=== PATIENT | female | born 1940 | race Caucasian/White ===

== ENCOUNTER 2018-10-27 11:45 | Emergency (ER) | payer MEDICARE, SELFPAY ==
[2018-10-27 11:45] VITALS: BP 174/96; PULSE 80; RESP 18; TEMP 36.8; O2SAT 96; BMI 32.3
--- NOTE | 2018-10-27 12:50 | RAD_ITS ---
STUDY: X-RAY - UNILATERAL RIBS ( RIGHT ) WITH CHEST REASON FOR EXAM: Female, 78 years old. ] Pain following a recent fall. TECHNIQUE - RIBS: 4 view(s) of the ribs. TECHNIQUE - CHEST: Single PA view of the chest. COMPARISON: None. FINDINGS - RIBS: Normal visualized ribs without a demonstrated fracture. FINDINGS - CHEST: Scattered calcified granulomas. Hyperinflation. Mild degree of increased linear markings at the left lung base suggestive of early atelectasis and/or scarring. There is no demonstrated pleural abnormality. Normal size heart. Normal mediastinum and jelani. Normal visualized pulmonary arteries. There is atherosclerotic calcification of the aortic arch with tortuosity. Normal visualized thoracic spine. Normal visualized ribs, clavicles, and shoulders. There is no demonstrated abnormality of the visualized soft tissue structures of the upper abdomen. RAD/Ribs Uni Min 3V w/PA Chest IMPRESSION: RIBS: Normal x-ray examination of the ribs. CHEST: Mild linear atelectasis and/or scarring at left lung base. Electronically Signed: Colin Yang, at 13:32 EDT , Service support ,
[2018-10-27] MEDS: oxyCODONE 5 MG Tablet 10 MG PO (13:01)
[2018-10-27 13:02] VITALS: O2SAT 96
--- NOTE | 2018-10-27 14:46 | ED.VISSUMM ---
- ER Visit Summary Date of Service: 10/27/18 Chief Complaint: Fall History of Present Illness: The patient is a 78 F with right-sided chest pain after a fall 3 days ago. Patient was not having issues prior to the fall. This was a mechanical fall, she slipped. She has continued right sided rib pain, worse with moving and breathing. She tried heating pad and [id number] remedies, but nothing seems to help. Physical Examination: Afebrile and vital signs are unremarkable except for a blood pressure of 174/96. Patient appears uncomfortable but not toxic or in distress. Head and neck are atraumatic. Heart is regular rate and rhythm. Lungs are clear bilaterally. Right chest wall is tender to palpation over the lateral side and the anterior surface. There is no crepitus or other abnormal findings. Skin is unremarkable per patient. Abdomen is soft and nontender. CVAs nontender. Neurovascular intact distally. Test Results: X-rays of her ribs and chest showed left basilar atelectasis versus scarring but otherwise were unremarkable. No evidence of fracture. Emergency Department Course and Treatment: Patient treated with oxycodone. Treated with incentive spirometer. X-rays as above. I have clinical suspicion for fracture without other complication at this point. Prescription report shows that the patient was prescribed a 56-day supply of tramadol less than 1 month ago. The patient says that she threw this medication away because it was not working. I advised her that she needs to contact her primary doctor for a controlled substance prescription. We can treat her with nonnarcotics at home. Patient will return for any new or worsening issues. Please note there was nothing to suggest cardiac, vascular, respiratory, or abdominal pathology. Treatment Plan: As above Disposition: Discharged Impression: 1. Right chest wall pain This note was generated with fishfishme dictation software. It may contain incorrect words, spelling, and punctuation that were not noted in review of the chart prior to signing ED Disposition - Plan for ED Patient: Referrals: Lor Blake MD [Primary Care Provider] -
--- NOTE | 2018-10-27 14:49 | ED.DEP ---
ED Disposition - Plan for ED Patient: Instructions: Chest Wall Strain Referrals: Lor Blake MD [Primary Care Provider] -
--- NOTE | 2018-10-27 15:23 | ED.RN ---
PT GIVEN WRITTEN AND VERBAL DISCHARGE INSTRUCTIONS. PT VERBALIZES UNDERSTANDING. EDUCATED NOT TO DRIVE FOR SIX HOURS AFTER HAVING MEDICATION. WHEELED TO ER ENTRANCE. PT AMBULATES FROM ENTRANCE.
== END 2018-10-27 15:23 | disposition home or self-care (01) ==
LOC: ED 12:22
PROVIDERS: Emergency Provider Emergency Medicine; Family Provider Internal Medicine; PCP Internal Medicine
DX: R07.89 Other chest pain (principal)
CPT/HCPCS: 71101; 99283

== ENCOUNTER 2018-11-03 15:37 | Emergency (ER) | payer MEDICARE, SELFPAY ==
[2018-11-03 15:38] VITALS: BP 113/74; PULSE 75; RESP 16; TEMP 36.4; O2SAT 96; BMI 30.2
== END 2018-11-03 17:25 | disposition left against medical advice (07) ==
PROVIDERS: Emergency Provider Emergency Medicine; Family Provider Internal Medicine; PCP Internal Medicine
DX: M54.9 Dorsalgia, unspecified (principal)

== ENCOUNTER 2022-08-04 08:22 | Emergency (ER) | payer MEDICARE, MEDICAID, SELFPAY ==
[2022-08-04 08:23] VITALS: BP 135/74; PULSE 67; RESP 17; TEMP 36.2; O2SAT 97; BMI 31.3
[2022-08-04 08:25] VITALS: BP 135/74; PULSE 69; RESP 16; TEMP 36.2; O2SAT 95
[2022-08-04 08:27] VITALS: BMI 31.3
--- NOTE | 2022-08-04 08:28 | CT_ITS ---
STUDY: CT BRAIN WITHOUT CONTRAST REASON FOR EXAM: Female, 82 years old. Confusion. Dementia. RADIATION DOSAGE (If Supplied By Facility): CTDIvol = ( 44.99 ) mGy, DLP = ( 829.85 ) mGycm TECHNIQUE: Transaxial CT imaging of the brain was performed without administration of intravenous contrast material. Individualized dose optimization techniques were used for this CT. COMPARISON: No relevant priors. FINDINGS: Normal soft tissue structures. There is hyperostosis frontalis internus. There is moderate cerebral atrophy with widening of the extra-axial spaces and ventricular dilatation. There are areas of decreased attenuation within the white matter tracts of the supratentorial brain, consistent with microvascular disease changes. Normal basal ganglia and thalami. Normal brainstem. Normal cerebellum. There is no intracranial hemorrhage. There are no findings of an acute ischemic infarction. Atherosclerotic plaque formation of the cavernous portions of the internal carotid arteries bilaterally. Normal visualized paranasal sinuses. CT/Brain/Head without Contrast IMPRESSION: Chronic involutional changes of the brain. Electronically Signed: Colin Yang MD at 9:47 EDT ,
--- NOTE | 2022-08-04 08:32 | EDS_ITS ---
HPI History of Present Illness Chief Complaint: Confusion Narrative Narrative: History and physical is limited secondary to dementia. Patient presents from [facility] with increased confusion above baseline. She denies any fevers or chills. She has occasional cough. No nausea or vomiting. No dysuria or hematuria. She states that she feels fine and is not in any pain. It was reported that she has had increased confusion and hallucinations. PFSH PFSH Home Medications buspirone 7.5 mg tablet 7.5 mg PO QHS 10/27/18 [History Last Taken Unknown] donepezil 10 mg tablet 10 mg PO DAILY 10/27/18 [History Last Taken Unknown] rizatriptan 10 mg tablet 10 mg PO DAILY 10/27/18 [History Last Taken Unknown] Crestor 20 mg PO.IVFORM DAILY 08/04/22 [History Last Taken Unknown] Vesicare 5 mg PO.IVFORM DAILY 08/04/22 [History Last Taken Unknown] fluoxetine 20 mg PO.IVFORM BID 08/04/22 [History Last Taken Unknown] lamotrigine 150 mg tablet 150 mg PO BID 08/04/22 [History Last Taken Unknown] meloxicam 15 mg tablet 15 mg PO DAILY 08/04/22 [History Last Taken Unknown] omeprazole 40 mg capsule,delayed release 40 mg PO DAILY 08/04/22 [History Last Taken Unknown] Allergy/AdvReac Type Severity Reaction Status Date / Time acyclovir AdvReac Upset Verified 11/03/18 15:40 Stomach aspirin AdvReac Other Verified 11/03/18 15:40 atorvastatin [From Lipitor] AdvReac Pain in Verified 11/03/18 15:40 joints diclofenac AdvReac Hives Verified 11/03/18 15:40 divalproex sodium AdvReac Other Verified 11/03/18 15:40 duloxetine [From Cymbalta] AdvReac Itching Verified 11/03/18 15:40 gemfibrozil [From Lopid] AdvReac Other Verified 11/03/18 15:40 ibuprofen [From Motrin] AdvReac Rash Verified 11/03/18 15:40 lovastatin AdvReac Other Verified 11/03/18 15:40 methadone AdvReac Other Verified 11/03/18 15:40 metronidazole [From Flagyl] AdvReac Upset Verified 11/03/18 15:40 Stomach morphine [From MS Contin] AdvReac Other Verified 11/03/18 15:40 NSAIDS (Non-Steroidal AdvReac Other Verified 11/03/18 15:40 Anti-Inflamma paroxetine [From Paxil] AdvReac Other Verified 11/03/18 15:40 pregabalin [From Lyrica] AdvReac Other Verified 11/03/18 15:40 rosuvastatin [From Crestor] AdvReac Pain in Verified 11/03/18 15:40 joints sertraline [From Zoloft] AdvReac Other Verified 11/03/18 15:40 sulfamethoxazole AdvReac Other Verified 11/03/18 15:40 [From Bactrim] trimethoprim [From Bactrim] AdvReac Other Verified 11/03/18 15:40 Social History Smoking Status: Unknown if ever smoked ROS ROS ED ROS Narrative Constitutional: No fever, no chills. HEENT: No sore throat. No neck pain. No loss of vision. No rhinorrhea. Cardiovascular: No chest pain. No palpitations. No pedal edema. Respiratory: Occasional cough, no shortness of breath. Abdominal: No abdominal pain. No nausea. No vomiting. Genitourinary: No dysuria. No hematuria. Musculoskeletal: No myalgias. No arthralgias. Neurologic: No headaches. No dizziness. No lightheadedness. Skin: No rash. No change in color. Psychiatric: No depression. No anxiety. EXAM Physical Exam Narrative Exam Narrative: Afebrile. Vital signs noted. HEENT: Normocephalic. Atraumatic. PERRL, EOMI. Neck soft and supple. No point tenderness or step off. Cardiovascular: Regular rate and rhythm. No murmurs, rubs, or gallops appreciated. Respiratory: No tachypnea. Lungs clear to auscultation bilaterally. Gastrointestinal: Abdomen soft, nontender, with normoactive bowel sounds. No rebound or guarding. Neurological: Awake. Alert. Oriented to person and state. Nonfocal, nonlateralizing. Consistent with dementia. No active hallucinations or internal stimulation. Skin: No rash. Normal color. No pallor. Musculoskeletal: No pedal edema. Full range of motion extremities. Const Vital Signs: 08/04/22 08:23 08/04/22 08:25 08/04/22 10:06 Temperature 97.2 F L 97.2 F L 97.6 F L Temperature Source Temporal Temporal Oral Pulse Rate 67 69 64 Respiratory Rate 17 16 12 Blood Pressure 135/74 H 135/74 H 132/57 H Blood Pressure Mean 94 94 82 Pulse Ox 97 95 97 Oxygen Delivery Method Room Air Room Air Room Air 08/04/22 11:39 Temperature Temperature Source Pulse Rate 73 Respiratory Rate 18 Blood Pressure 124/77 H Blood Pressure Mean 92 Pulse Ox 95 Oxygen Delivery Method Room Air MDM MDM MDM Narrative Medical decision making narrative: Comprehensive work-up was pursued to rule out urinary tract infection or pneumonia as causes of infection causing increased confusion in this patient with history of dementia. As it was reported that she was hallucinating, I will obtain a urine drug screen in order to medically clear her for the event that she would need medical clearance for psychological evaluation. Additionally, although she has no history of liver failure, I will obtain ammonia level to help rule out hepatic encephalopathy. CT of the brain will also be obtained. I reviewed the patient's laboratory work she has a normal white count of 5.1, hemoglobin normal at 12.6, hematocrit 39.1, normal platelet count of 290. In review of her electrolyte panel, she has slight hypokalemia of 3.2 which was replaced orally with 40 mEq. She has slightly elevated creatinine of 1.15 which I think is nonspecific, BUN normal at 16, I do not feel that she is dehydrated. Ammonia level is normal at 24. I do not feel that she has an encephalopathy that is hepatic in nature. Glucose normal at 106. Urinalysis shows 10-25 WBCs but there are 5-10 epithelial cells and I think this is a contaminated specimen. As she is not having any urinary tract infection type symptoms I do not feel that antibiotics are currently indicated, but this will be sent for culture. I do not feel that this would be the cause of her reported confusion. I interpreted her chest x-ray and see no acute process, no consolidation. I reviewed the radiology report which confirms my independent interpretation. I reviewed the CT imaging of her brain which shows chronic involutional changes but no acute hemorrhage. I also reviewed the radiology report which confirms this. At this point in time, I have no reason to admit the patient to the hospital or treat her with antibiotics. I do feel that her reported hallucinations may be attributed to her dementia. She is not complaining of any pain. She will be discharged to the [facility] facility in stable condition. History & Record Review Additional record(s) reviewed:: Prior outpatient record, Prior ED visit and Prior labs Lab Data Attestation: I reviewed the patient's lab results. Labs: Laboratory Results - last 24 hr 08/04/22 08/04/22 08/04/22 08:35 08:35 08:40 WBC 5.1 RBC 4.10 L Hgb 12.6 Hct 39.1 MCV 95.4 MCH 30.7 MCHC 32.2 RDW Std Deviation 46.8 H RDW Coeff of [place] 13.2 Plt Count 290 MPV 9.7 Immature Gran % (Auto) 0.400 Neut % (Auto) 54.8 Lymph % (Auto) 33.9 [place] % (Auto) 7.7 Eos % (Auto) 2.2 Baso % (Auto) 1.0 Absolute Neuts (auto) 2.8 Absolute Lymphs (auto) 1.71 Nucleated RBC % 0 Sodium 138 Potassium 3.2 L Chloride 108 H Carbon Dioxide 30.0 Anion Gap 0 L BUN 16 Creatinine 1.15 H Estim Creat Clear Calc 37.94 Est GFR (MDRD) Af Amer 58 L Est GFR (MDRD) Non-Af 48 L BUN/Creatinine Ratio 13.9 Glucose 106 Calcium 8.7 Total Bilirubin 0.40 AST 17 ALT 19 Alkaline Phosphatase 100 Ammonia 24.0 Total Protein 6.5 Albumin 3.5 Globulin 3.0 Albumin/Globulin Ratio 1.2 Urine Color Urine Clarity Urine pH Ur Specific [place] Urine Protein Urine Glucose (UA) Urine Ketones Urine Occult Blood Urine Nitrite Urine Bilirubin Urine Urobilinogen Ur Leukocyte Esterase Urine RBC Urine WBC Ur Squamous Epith Cells Ur Renal Epithelial Cell Urine Bacteria Urine Mucus Urine Opiates Screen Urine Methadone Screen Ur Barbiturates Screen Ur Phencyclidine Scrn Ur Amphetamines Screen MDMA (Ecstasy) Screen U Benzodiazepines Scrn Urine Cocaine Screen U Cannabinoids Screen Ur Drug Screen Comment 08/04/22 08/04/22 10:05 10:05 WBC RBC Hgb Hct MCV MCH MCHC RDW Std Deviation RDW Coeff of [place] Plt Count MPV Immature Gran % (Auto) Neut % (Auto) Lymph % (Auto) [place] % (Auto) Eos % (Auto) Baso % (Auto) Absolute Neuts (auto) Absolute Lymphs (auto) Nucleated RBC % Sodium Potassium Chloride Carbon Dioxide Anion Gap BUN Creatinine Estim Creat Clear Calc Est GFR (MDRD) Af Amer Est GFR (MDRD) Non-Af BUN/Creatinine Ratio Glucose Calcium Total Bilirubin AST ALT Alkaline Phosphatase Ammonia Total Protein Albumin Globulin Albumin/Globulin Ratio Urine Color Yellow Urine Clarity Sl. Cloudy Urine pH 6.0 Ur Specific [place] 1.025 Urine Protein 30 H Urine Glucose (UA) Normal Urine Ketones Negative Urine Occult Blood 25 H Urine Nitrite Negative Urine Bilirubin Negative Urine Urobilinogen 1 H Ur Leukocyte Esterase 500 H Urine RBC 0-5 SEEN Urine WBC 10-25 SEEN Ur Squamous Epith Cells 5-10 SEEN Ur Renal Epithelial Cell 0-5 SEEN Urine Bacteria RARE Urine Mucus 2+ Urine Opiates Screen NEGATIVE Urine Methadone Screen NEGATIVE Ur Barbiturates Screen NEGATIVE Ur Phencyclidine Scrn NEGATIVE Ur Amphetamines Screen NEGATIVE MDMA (Ecstasy) Screen NEGATIVE U Benzodiazepines Scrn NEGATIVE Urine Cocaine Screen NEGATIVE U Cannabinoids Screen NEGATIVE Ur Drug Screen Comment Radiography Diagnostic Testing: Clinical Impression(s) from Imaging Studies Brain CT 08/04/22 08:28 IMPRESSION: Chronic involutional changes of the brain. Electronically Signed: Colin Yang MD at 9:47 EDT , Chest X-Ray 08/04/22 09:04 IMPRESSION: Hiatal hernia. The lungs are clear. Electronically Signed: Colin Yang MD at 9:31 EDT , Discharge Plan Triage Chief Complaint: Confusion ED Provider: Brad Prakash Dx/Rx/DC Orders Clinical Impression: Confusion, Dementia, Hypokalemia Instructions: ED Confusion, ED CAREGIVER SUPPORT for DEMENTIA, ED Hypokalemia Prescriptions: No Action donepezil 10 tablet 10 mg PO DAILY rizatriptan 10 MG tablet 10 mg PO DAILY Label Comments: TAKE ONE TABLET AT ONSET OF HEADACHE MAY REPEAT IN 2 HOURS NO MORE THAN 3 TABLETS PER DAY buspirone 7.5 MG tablet 7.5 mg PO QHS Label Comments: TAKE 3 TABLETS BY MOUTH TWICE DAILY. lamotrigine 150 mg Tablet 150 mg PO BID meloxicam 15 mg Tablet 15 mg PO DAILY omeprazole 40 mg Capsule,Delayed Release(Dr/Ec) 40 mg PO DAILY Crestor 20 mg PO.IVFORM DAILY Vesicare 5 mg PO.IVFORM DAILY fluoxetine 20 mg PO.IVFORM BID Primary Care Provider: Lor Blake Referrals: Lor Blake MD [Primary Care Provider] - Disposition Disposition: Care Home Facility Discharge Location: [facility]
[2022-08-04 08:45] LABS: Absolute Lymphocyte Count 1.71 X10^3/uL (0.83-4.51); Absolute Neutrophil Count 2.8 X10^3/uL (2.0-7.7); Basophil# 0.05 X10^3/uL; Eosinophil# 0.11 X10^3/uL; Eosinophils% 2.2 % (0-5); Hematocrit 39.1 % (37-47); Hemoglobin 12.6 g/dL (12.0-15.0); Lymphocyte # 1.71 X10^3/ul (0.83-4.51); Lymphocyte % 33.9 % (19-41); Mean Corp Hgb Conc 32.2 g/dL (32-36); Mean Corpuscular Hgb 30.7 pg (27.0-32.0); Mean Corpuscular Volume 95.4 fL (81-99); Mean Platelet Vol. 9.7 fl (6.2-12.0); Monocyte# 0.39 X10^3/uL; Monocyte% 7.7 % (0-10); NRBC Flagged by Analyzer 0 % (0-5); Neutrophil # 2.77 X10^3/uL (2.7-7.7); Neutrophil % 54.8 % (47-70); Platelet Count 290 K/mm3 (150-450); RBC Distribution Width CV 13.2 % (11.6-14.6); RBC Distribution Width SD 46.8 fl (35.1-43.9); White Blood Count 5.1 K/mm3 (4.4-11.0)
[2022-08-04 08:57] LABS: ALB/GLOB Ratio 1.2 RATIO (0.9-2.4); AST(SGOT) 17 U/L (15-37); Alanine Aminotransfer ALT/SGPT 19 U/L (13-56); Albumin, Serum 3.5 g/dL (3.2-5.0); Alkaline Phosphatase 100 U/L (45-117); Anion Gap 0 (5-15); BUN 16 mg/dL (7-18); BUN/Creat Ratio 13.9 RATIO (10-20); Calcium,Total 8.7 mg/dL (8.5-10.1); Chloride 108 mmol/L (98-107); Creatinine, Serum 1.15 mg/dL (0.55-1.02); EST Glomerular Filtration Rate 48 mL/min (>60); Est Glom Filt Rate - Afr Amer 58 mL/min (>60); Estimated Creatinine Clearance 37.94 ml/min; Glucose 106 mg/dL (74-106); Potassium 3.2 mmol/L (3.5-5.1); Protein, Total 6.5 g/dL (6.4-8.2); Sodium Level 138 mmol/L (136-145)
--- NOTE | 2022-08-04 09:04 | RAD_ITS ---
STUDY: X-RAY CHEST REASON FOR EXAM: Female, 82 years old. Cough TECHNIQUE: Single AP portable view of the chest. COMPARISON: Comparison is made with prior study dated October 27, 2018. FINDINGS: EKG electrodes are seen. The lungs are clear and expanded. There is no demonstrated pleural abnormality. There is borderline cardiomegaly. Normal mediastinum and jelani. Normal visualized pulmonary arteries. There is atherosclerotic calcification of the aortic arch with tortuosity. There are diffuse degenerative changes of the visualized thoracic spine. There is degenerative osteoarthritis of the bilateral shoulders. Hiatal hernia. RAD/Chest 1 View (Portable) IMPRESSION: Hiatal hernia. The lungs are clear. Electronically Signed: Colin Yang MD at 9:31 EDT ,
[2022-08-04 10:06] VITALS: BP 132/57; PULSE 64; RESP 12; TEMP 36.4; O2SAT 97
[2022-08-04 10:23] LABS: Color, Urine Yellow (Yellow); Glucose, Dipstick Normal (Normal); Ketone-Dipstick Negative (Negative); Leukocyte Esterase-Dipstick 500 /ul (Negative); Nitrite-Dipstick Negative (Negative); Occult Blood-Urine 25 /ul (Negative); Protein-Dipstick 30 mg/dl (Negative); Specific Gravity, Urine 1.025 (1.002-1.030); Urine Bilirubin Dipstick Negative (Negative); Urine Clarity Sl. Cloudy (Clear); Urine Urobilinogen 1 mg/dl (Normal)
[2022-08-04 10:26] LABS: Amphetamine Urine VISTA NEGATIVE (<1000 ng/mL); Barbiturate Urine VISTA NEGATIVE (< 200 ng/mL); Benzodiazepine Urine VISTA NEGATIVE (< 200 ng/mL); Cocaine Urine VISTA NEGATIVE (< 300 ng/mL); Ecstacy Urine VISTA NEGATIVE (< 500 ng/mL); Methadone Urine VISTA NEGATIVE (< 300 ng/mL); PCP Urine VISTA NEGATIVE (< 25 ng/mL); THC Urine VISTA NEGATIVE (< 50 ng/mL); Vista UDS pH Range 6
[2022-08-04 10:30] LABS: White Blood Cells 10-25 SEEN /hpf (0-5)
[2022-08-04 10:31] LABS: Mucous, Urine 2+ /hpf (<or=2+); Red Blood Cells-Urine 0-5 SEEN /hpf (0-5); Renal Epithelial Cells 0-5 SEEN /hpf (0-5); Squamous Epithelial Cells - UA 5-10 SEEN /hpf (5-10)
[2022-08-04 10:32] LABS: Bacteria RARE /hpf (None Seen)
[2022-08-04] MEDS: Potassium Chloride Oral Tablet 20 MEQ 40 MEQ PO (11:37)
[2022-08-04 11:39] VITALS: BP 124/77; PULSE 73; RESP 18; O2SAT 95
--- NOTE | 2022-08-04 12:10 | ED.RN ---
full charge bookkeeperMARTHA Vines called Martha to inform of pt return
== END 2022-08-04 12:10 | disposition skilled nursing facility (03) ==
PROVIDERS: Emergency Provider Emergency Medicine; PCP Internal Medicine; Visit Provider Emergency Medicine
DX: F03.90 Unspecified dementia, unspecified severity, without behavioral disturbance, psychotic disturbance, mood disturbance, and anxiety (principal); E87.6 Hypokalemia; Z79.899 Other long term (current) drug therapy
CPT/HCPCS: 70450; 71045; 80053; 80307; 81001; 82140; 85025; 87086; 87088; 99285; A4216

== ENCOUNTER 2022-08-10 08:42 | Emergency (ER) | payer MEDICARE, MEDICAID, SELFPAY ==
--- NOTE | 2022-08-10 08:46 | ED.RN ---
PATIENT DENIES ALLERGIES, PAPERWORK FROM [facility] ALSO SAYS [facility]. HOWEVER IN OUR RECORDS THERE ARE SEVERAL ALLERGIES INDICATED. NO CHANGE WAS MADE TO THOSE UNTIL FURTHER CLARIFICATION CAN BE OBTAINED.
[2022-08-10 08:47] VITALS: BP 152/63; PULSE 69; RESP 14; TEMP 35.7; O2SAT 97; BMI 31.2
--- NOTE | 2022-08-10 08:53 | RAD_ITS ---
STUDY: X-RAY - PELVIS AND RIGHT HIP REASON FOR EXAM: Female, 82 years old. Fall/injury TECHNIQUE: 3 views of the pelvis and hip. COMPARISON: None. FINDINGS: There is a non-specific bowel gas pattern. Normal visualized soft tissue structures. Normal bilateral iliac wings, sacroiliac joints and visualized sacrum. Normal bilateral superior and inferior pubic rami. There are degenerative changes of the pubic symphysis with articular narrowing and sclerosis. Normal bilateral ischial tuberosities. Normal visualized femoral head. Normal acetabulum. There is mild articular joint space narrowing of the hip. RAD/HIP, UNI W/ Pelvis 2-3 Views IMPRESSION: Degenerative changes. No acute abnormality is seen. Electronically Signed: Colin Yang MD at 9:39 EDT ,
--- NOTE | 2022-08-10 08:53 | CT_ITS ---
STUDY: CT BRAIN WITHOUT CONTRAST REASON FOR EXAM: Female, 82 years old. Head injury due to a fall. RADIATION DOSAGE (If Supplied By Facility): CTDIvol = ( 44.99 ) mGy, DLP = ( 829.85 ) mGycm TECHNIQUE: Transaxial CT imaging of the brain was performed without administration of intravenous contrast material. Individualized dose optimization techniques were used for this CT. COMPARISON: Comparison is made with prior study of August 04, 2022. FINDINGS: Normal soft tissue structures. Normal calvarium. There is moderate cerebral atrophy with widening of the extra-axial spaces and ventricular dilatation. There are areas of decreased attenuation within the white matter tracts of the supratentorial brain, consistent with microvascular disease changes. Normal basal ganglia and thalami. Normal brainstem. Normal cerebellum. There is no intracranial hemorrhage. There are no findings of an acute ischemic infarction. Atherosclerotic plaque formation of the cavernous portions of the internal carotid arteries bilaterally. Normal visualized paranasal sinuses. CT/Brain/Head without Contrast IMPRESSION: Chronic involutional changes of the brain. Electronically Signed: Colin Yang MD at 9:39 EDT ,
--- NOTE | 2022-08-10 08:55 | EDS_ITS ---
HPI HPI - Fall History of Present Illness Chief Complaint: Fall Informant: patient Occured/Mechanism Occurred: Today Narrative: fell while getting out of bed Pain/Injury Pain Location: head and other (R hip) Quality of Pain: - (sore) Current Severity: Mild Maximum Severity: Mild Worsened by: nothing Relieved by: nothing Associated Symptoms Associated Symptoms: Negative for Parasthesias, Weakness, Loss of function or Loss of consciousness Narrative Narrative: Patient has dementia and assisted living, she states she was trying to get out of bed this morning and she fell while doing so. She states the bed is really soft and sometimes it is hard for her to get out of it. She had no prodromal symptoms no recent illness that she knows of although she is on Macrobid on her medication list sent with her. Patient states that she fell she thinks against her right hip mainly, she hit her head against a nearby clothes chest or something that holds her clothes. She had no loss of consciousness or vomiting, she has some soreness in the back of her scalp/head but no headache or vision trouble. She states she had trouble getting up and so she crawled on her knees along the floor to try to get somebody, and so her knees are sore as well. [facility] Medical History (Updated 08/10/22 @ 09:[address] Donavan Wylie MD) Anxiety Bipolar 1 disorder Dementia Depression Hyperlipemia Home Medications buspirone 7.5 mg tablet 7.5 mg PO BID 10/27/18 [History Last Taken Unknown] donepezil 10 mg tablet 5 mg PO QHS 10/27/18 [History Last Taken Unknown] rizatriptan 10 mg tablet 10 mg PO DAILY 10/27/18 [History Last Taken Unknown] Crestor 20 mg PO.IVFORM DAILY 08/04/22 [History Last Taken Unknown] Vesicare 5 mg PO/SL DAILY 08/04/22 [History Last Taken Unknown] fluoxetine 20 mg PO/SL BID 08/04/22 [History Last Taken Unknown] lamotrigine 150 mg tablet 150 mg PO BID 08/04/22 [History Last Taken Unknown] meloxicam 15 mg tablet 15 mg PO DAILY 08/04/22 [History Last Taken Unknown] omeprazole 40 mg capsule,delayed release 40 mg PO DAILY 08/04/22 [History Last Taken Unknown] Allergy/AdvReac Type Severity Reaction Status Date / Time acyclovir AdvReac Upset Verified 08/10/22 08:46 Stomach aspirin AdvReac Other Verified 08/10/22 08:46 atorvastatin [From Lipitor] AdvReac Pain in Verified 08/10/22 08:46 joints diclofenac AdvReac Hives Verified 08/10/22 08:46 divalproex sodium AdvReac Other Verified 08/10/22 08:46 duloxetine [From Cymbalta] AdvReac Itching Verified 08/10/22 08:46 gemfibrozil [From Lopid] AdvReac Other Verified 08/10/22 08:46 ibuprofen [From Motrin] AdvReac Rash Verified 08/10/22 08:46 lovastatin AdvReac Other Verified 08/10/22 08:46 methadone AdvReac Other Verified 08/10/22 08:46 metronidazole [From Flagyl] AdvReac Upset Verified 08/10/22 08:46 Stomach morphine [From MS Contin] AdvReac Other Verified 08/10/22 08:46 NSAIDS (Non-Steroidal AdvReac Other Verified 08/10/22 08:46 Anti-Inflamma paroxetine [From Paxil] AdvReac Other Verified 08/10/22 08:46 pregabalin [From Lyrica] AdvReac Other Verified 08/10/22 08:46 rosuvastatin [From Crestor] AdvReac Pain in Verified 08/10/22 08:46 joints sertraline [From Zoloft] AdvReac Other Verified 08/10/22 08:46 sulfamethoxazole AdvReac Other Verified 08/10/22 08:46 [From Bactrim] trimethoprim [From Bactrim] AdvReac Other Verified 08/10/22 08:46 Social History Smoking Status: Never smoker ROS ROS ED Constitutional Constitutional ED: Denies chills or fever(s) Eyes Eyes: Denies change in vision or diplopia ENT ENT ED: Denies ear pain, epistaxis, facial pain or rhinorrhea Cardiovascular Cardiovascular: Denies chest pain or palpitations Respiratory/Chest Respiratory/Chest: Denies cough or dyspnea Gastrointestinal Gastrointestinal: Denies abdominal pain, diarrhea, melena, nausea or vomiting Genitourinary Genitourinary ED: Denies dysuria or hematuria Musculoskeletal Musculoskeletal: Reports extremity pain; Denies back pain or neck pain Integumentary Denies abscess, Abrasions, laceration or rash Neurologic Neurologic: Denies headache(s), paresthesias or weakness EXAM Physical Exam Const Vital Signs: 08/10/22 08:47 08/10/22 08:49 Temperature 96.3 F L Temperature Source Temporal Pulse Rate 69 Respiratory Rate 14 Respiratory Effort Normal Non-Labored Short of Breath Respiratory Pattern Normal Blood Pressure 152/63 H Blood Pressure Mean 92 Pulse Ox 97 Oxygen Delivery Method Room Air Positive well nourished and well developed General Appearance ED: well developed and NAD HEENT Reports TM's clear and nasal mucous membranes and turbinates normal atraumatic; Negative for tenderness Face and Sinus: Negative for facial tenderness Tympanic Membrane ED: Yes TM's clear Eyes PERRL and EOMs intact bilaterally Visual Acuity: other Other Details: no entrapment or pain with extraocular movements Neck full ROM and supple General: Negative for tenderness Chest Wall inspection of chest normal and palpation of chest normal Chest: symmetrical chest wall rise; Negative for crepitus or tenderness Resp normal respiratory effort and clear to auscultation bilaterally Percussion: other equal BS bilat Cardio no murmurs Rate: regular rate Rhythm: regular rhythm GI normal to inspection, nondistended, normoactive bowel sounds, soft to palpation and non-tender Back/Spine normal ROM Cervical Spine: Negative for cervical spine tenderness Thoracic Spine / Upper Back: Negative for thoracic spinal tenderness Lumbar Spine / Lower Back: Negative for lumbar spinal tenderness Extremity normal to inspection and full ROM Extremity Narrative: Mild tenderness right greater trochanter, painless full range of motion of the right hip and all other joints of both lower extremities and upper extremities. With regards to her knees, both are without any signs of trauma, no anterior or other bony tenderness, all ligaments stable with short endpoints and no pain on stressing. This includes negative Tien and negative posterior drawer signs. There is no deformity of either hip. On initial exam, she has her feet on the bed with knees fully flexed up. General Extremety ED: Yes tenderness Neuro CN's II-XII intact bilaterally, moves all extremities, no focal motor deficits and no sensory deficits noted Mel Coma Scale: document GCS findings Spontaneous Obeys Commands Oriented 15 Sensorium / Orientation: awake, alert, oriented to person and oriented to place; Negative for oriented to time Psych mental status grossly normal and thought process normal Skin no wounds Lesions: no lesions Rashes: no rashes MDM MDM MDM Narrative Medical decision making narrative: CT of the head obtained, I reviewed the images they appear to show no sign of intracranial hemorrhage or skull fracture, radiology was in agreement and I agree with his interpretation. Right hip x-ray including pelvis 3 views of my interpretation negative for any acute fracture, radiology in agreement. I had nursing ambulate the patient. She usually walks with a cane. With the nurses arm under hers, she was able to walk but would occasionally have some trouble with regards to the right hip. She said her knees were sore as well. I went to reevaluate her a little later, and when I entered the room, she had climbed out of bed and was actively walking around the room, occasionally looking like she would have some discomfort in her right hip and/or groin with doing so. She has not fallen. I discussed with her getting an MRI in order to rule out occult fracture of the hip. I am not concerned about any of the other joints of her lower extremities being fractured, and I have a low suspicion of an occult fracture in the right hip watching her ambulate. I discussed with MRI, they do have an opening today in a couple hours. However while waiting for this imaging, the patient walked out of her room to the triage desk, without any apparent difficulty or pain, and said that she did not want an MRI, she refuses to sit in that tube, and I do not want any of those strong medicines to enable me to be able to. She wants to go back to assisted living I think that is very reasonable at this time, given the painless ambulatory challenge here. Radiography Diagnostic Testing: Clinical Impression(s) from Imaging Studies Brain CT 08/10/22 08:53 IMPRESSION: Chronic involutional changes of the brain. Electronically Signed: Colin Yang MD at 9:39 EDT , Hip/Pelvis X-Ray 08/10/22 08:53 IMPRESSION: Degenerative changes. No acute abnormality is seen. Electronically Signed: Colin Yang MD at 9:39 EDT , Discharge Plan Triage Chief Complaint: Fall ED Provider: Donavan Wylie Dx/Rx/DC Orders Clinical Impression: Contusion of hip, right, Contusion of scalp, Accidental fall from bed Instructions: ED Scalp Contusion, ED Hip Contusion Prescriptions: No Action donepezil 10 tablet 5 mg PO QHS rizatriptan 10 MG tablet 10 mg PO DAILY Label Comments: TAKE ONE TABLET AT ONSET OF HEADACHE MAY REPEAT IN 2 HOURS NO MORE THAN 3 TABLETS PER DAY buspirone 7.5 MG tablet 7.5 mg PO BID Label Comments: TAKE 3 TABLETS BY MOUTH TWICE DAILY. lamotrigine 150 mg Tablet 150 mg PO BID meloxicam 15 mg Tablet 15 mg PO DAILY omeprazole 40 mg Capsule,Delayed Release(Dr/Ec) 40 mg PO DAILY Crestor 20 mg PO.IVFORM DAILY Vesicare 5 mg PO/SL DAILY fluoxetine 20 mg PO/SL BID Primary Care Provider: Lor Blake Referrals: Lor Blake MD [Primary Care Provider] - 1 Week if not improving (with regards to hip pain) Disposition Disposition: Home, Self Care
[2022-08-10] MEDS: Ondansetron ODT 4 MG Tablet PO (09:35)
--- NOTE | 2022-08-10 10:50 | ED.RN ---
PATIENT AMBULATES OUT OF HER ROOM WITHOUT ASSISTANCE AND ADAMANTLY IS REFUSING AN MRI AND STRONG MEDICATIONS TO DO THE TEST. DR. RICHARDS NOTIFIED.
--- NOTE | 2022-08-10 11:03 | ED.RN ---
REQUESTED MORE INFORMATION FROM [facility] REGARDING PATIENT POA/ GUARDIAN, ALSO FOR THEIR INPUT ON PATIENT SAFETY AT THE FACILITY THERE IS SOME CONCERN HERE FOR HER CONFUSION & AMBULATING ABOUT THE ER DEPARTMENT STATING I AM LEAVING. SPOKE TO ALEXA AT [facility], THEY DO HAVE CONCERNS FOR PATIENT SAFETY AND THAT THERE IS A DIAGNOSIS OF DEMENTIA. SHE STATES THEY HAVE BEEN WORKING TO REFER PATIENT TO A COUPLE PLACES FOR HIGHER LEVEL OF SNF/DEMENTIA CARE. [facility] AND [facility] HAVE REFERRALS, WITH ANOTHER POSSIBILITY OF [facility]. DAUGHTER: TRACE CLARK [phone] WILL HAVE SW CONSULT.
--- NOTE | 2022-08-10 12:32 | CM.ED ---
Addendum entered by Anay Jimenez 08/10/22 14:46: [facility] Cov[facility] and 7000 be completed. risk intern updated and ordered covid. SW completed PASrr and sent covid results as well as PASrr results. MARIO ALBERTO contacted Yenni at [facility] to confirm she received documents via [facility]. Yenni confirmed and requested discharge information as well as transportation ETA explaining staff would prefer patient comes later today as they are working on another admission currently. SW informed care team patient has been accepted to [facility]. loan secretary arranged transportation with an ETA of 2 hrs. SW met with patient and updated her regarding placement to [facility]. Patient explained she spoke with her daughter regarding SNF and is in agreement to go. SW explained ETA is 2 hrs. SW contacted patient's daughter with transportation ETA. Patient's daughter reports an understanding and explained she informed [facility] patient will not be returning and [facility]. Patient's daughter also explained patient's son will be coming to visit patient tomorrow. Plan: [facility], transportation ETA 2 hrs. Anay Jimenez RESEARCH ENVIRONMENTAL SCIENTIST, INSPECTOR ELECTROMECHANICAL Original Note: Social Work Note Referral Source: MD Wylie Referral reason: discharge/ SNF MARIO ALBERTO met with MARTHA Holloway to review concerns for patient as patient is from [facility] but their staff is concerned that they can't provide patient with the services she needs. RN reports patient is confused and trying to leave, SW provided information for patient's daughter. SW met with patient and introduced herself and role as [facility] Spanish Lecturer. Patient was seated but attempted to walk towards and had to lean on the trash can int he room to regain her balance. SW encouraged patient to return to the chair, patient able to return to the chair. SW inquired about patient's living situation. Patient reports she is from [facility] but wants to move in with her daughter. Patient attempted to recall events prior to coming into ED and reports she [place] currently [place] [employer] waiting on lunch. SW inquired if patient had HCPOA, patient reports maybe, it would be my daughter Vivian. SW inquired if she can contact patient's daughter, patient in agreement. SW contacted patient's daughter and introduced herself and role as [facility] SW. Patient's daughter agreeable to speak with SW explaining patient has been staying at [facility] starting this month and they have been assisting in getting patient to a different facility. Patient's daughter reports patient is pending with Medicaid coverage which has prevented her from going to another facility. SW inquired about facilities they have been in contact with. Patient's daughter states patient was declined by [facility] but had referrals at [facility] and [facility]. Patient's daughter explained she lives in [place] but plans to move to [place] in the summer, patient's sons currently resident in [place]. The siblings live in [place] and [facility] so the plan is to stay in those areas. SW inquired about contacting [facility] and [facility] to further discuss placement as ED staff and [facility] are concerned about patient's safety. Patient's daughter in agreement with referrals starting with [facility] as she started to hear negative reviewed about [facility]. SW explained she would contact those facilities and contact patient's daughter to further discuss. SW also mentioned [facility] as they have a memory Care unit, but will start with [facility] and [facility]. Patient's daughter in agreement. Patient's daughter clarified she is not patient's HCPOA as the patient wouldn't complete the documents. Patient's daughter explained she and her brothers have a group chat so they all communicate regarding patient's care. SW explained communication between them is important as they together need to make her decisions. SW contacted [facility] and spoke with admissions staff. Admissions staff willing to review a referral for SNF placement due to patient's recent fall. SW sent referral via [facility]. Plan: SNF placement Anay REID, UMAIR
--- NOTE | 2022-08-10 15:48 | NURSING ---
Report called to [facility] nurses station at this time.
[2022-08-10 15:49] VITALS: RESP 18
--- NOTE | 2022-08-10 16:00 | NURSING ---
CALLED PHYSICIANS FOR AN UPDATED ETA- PREVIOUS ETA WAS 1635-- UPDATED ETA IS 1907
[2022-08-10] MEDS: Ziprasidone IM 20 MG/ML VIAL 10 MG IM (16:10)
--- NOTE | 2022-08-10 16:27 | ED.RN ---
spoke with daughter Vivian, informed about medication and restraints.
[2022-08-10 18:18] VITALS: PULSE 83; RESP 20; O2SAT 95
== END 2022-08-10 19:35 | disposition home or self-care (01) ==
PROVIDERS: Emergency Provider Emergency Medicine; PCP Internal Medicine; Visit Provider Emergency Medicine
DX: S70.01XA Contusion of right hip, initial encounter (principal); F31.9 Bipolar disorder, unspecified; S00.03XA Contusion of scalp, initial encounter; E78.5 Hyperlipidemia, unspecified; F41.9 Anxiety disorder, unspecified; Z79.899 Other long term (current) drug therapy; W06.XXXA Fall from bed, initial encounter
CPT/HCPCS: 70450; 73502; 87811; 96372; 99284; J3486

== ENCOUNTER 2022-08-11 19:52 | Emergency (ER) | payer MEDICARE, MEDICAID, SELFPAY ==
[2022-08-11 19:54] VITALS: BP 126/74; PULSE 85; RESP 18; TEMP 36.7; O2SAT 93; BMI 31.6
--- NOTE | 2022-08-11 19:58 | ED.RN ---
Lianne nurse at [facility], called to inform that pt was hitting staff and residents. [facility] [phone]
[2022-08-11 21:25] LABS: Absolute Lymphocyte Count 1.47 X10^3/uL (0.83-4.51); Absolute Neutrophil Count 5.2 X10^3/uL (2.0-7.7); Basophil# 0.06 X10^3/uL; Basophil% 0.8 % (0-1); Eosinophil# 0.09 X10^3/uL; Eosinophils% 1.2 % (0-5); Hematocrit 39.3 % (37-47); Hemoglobin 12.1 g/dL (12.0-15.0); Lymphocyte # 1.47 X10^3/ul (0.83-4.51); Lymphocyte % 19.9 % (19-41); Mean Corp Hgb Conc 30.8 g/dL (32-36); Mean Corpuscular Hgb 30.9 pg (27.0-32.0); Mean Corpuscular Volume 100.3 fL (81-99); Mean Platelet Vol. 10.9 fl (6.2-12.0); Monocyte# 0.53 X10^3/uL; Monocyte% 7.2 % (0-10); NRBC Flagged by Analyzer 0 % (0-5); Neutrophil % 70.6 % (47-70); Platelet Count 261 K/mm3 (150-450); RBC Distribution Width CV 13.9 % (11.6-14.6); RBC Distribution Width SD 51.1 fl (35.1-43.9); Red Blood Count 3.92 M/mm3 (4.2-5.4); White Blood Count 7.4 K/mm3 (4.4-11.0)
[2022-08-11 21:42] LABS: Anion Gap 4 (5-15); BUN 30 mg/dL (7-18); BUN/Creat Ratio 22.6 RATIO (10-20); Calcium,Total 9.4 mg/dL (8.5-10.1); Chloride 109 mmol/L (98-107); Creatinine, Serum 1.33 mg/dL (0.55-1.02); EST Glomerular Filtration Rate 41 mL/min (>60); Est Glom Filt Rate - Afr Amer 49 mL/min (>60); Estimated Creatinine Clearance 32.81 ml/min; Glucose 104 mg/dL (74-106); Potassium 4.7 mmol/L (3.5-5.1); Sodium Level 140 mmol/L (136-145)
[2022-08-11 21:50] LABS: Alcohol, Blood (Medical)-Serum < 3.0 mg/dL
--- NOTE | 2022-08-11 22:26 | EX.ED.VIS.PS ---
HPI HPI - Psych History of Present Illness Chief Complaint: Mental Health Informant: patient and SNF Narrative Narrative: Patient history of dementia, bipolar presents from [facility] due to being combative status post Haldol and Ativan at facility prior to being transported. Note seen yesterday in the ED was at [facility] prior for short-term excepted there. However from review records did not know she had a history of dementia, she had falls she was seen and cleared. She is walking in the emergency department yesterday. From ED physician's note, attempted to send her back however they were a unable to have enough staff to care for her there. Therefore case management was involved and able to get her placed to [facility]. Carlos had increasing symptoms combativeness requiring medications. Patient has no complaints during evaluation. [facility] Medical History Anxiety Bipolar 1 disorder Dementia Depression Hyperlipemia Home Medications buspirone 7.5 mg tablet 7.5 mg PO BID 10/27/18 [History Last Taken Unknown] donepezil 10 mg tablet 10 mg PO QHS 10/27/18 [History Last Taken Unknown] rizatriptan 10 mg tablet 10 mg PO DAILY 10/27/18 [History Last Taken Unknown] Crestor 20 mg OTHER DAILY 08/04/22 [History Last Taken Unknown] fluoxetine 20 mg PO/SL BID 08/04/22 [History Last Taken Unknown] lamotrigine 150 mg tablet 150 mg PO BID 08/04/22 [History Last Taken Unknown] meloxicam 15 mg tablet 15 mg PO DAILY 08/04/22 [History Last Taken Unknown] omeprazole 40 mg capsule,delayed release 40 mg PO DAILY 08/04/22 [History Last Taken Unknown] lorazepam 1 mg tablet (Ativan) 1 mg PO Q12H PRN PRN Restlessness 08/11/22 [History Last Taken Unknown] oxybutynin chloride 5 mg tablet,extended release 24 hr 5 mg PO DAILY 08/11/22 [History Last Taken Unknown] solifenacin 5 mg tablet (Vesicare) 5 mg PO DAILY 08/11/22 [History Last Taken Unknown] Allergy/AdvReac Type Severity Reaction Status Date / Time acyclovir AdvReac Upset Verified 08/10/22 08:46 Stomach aspirin AdvReac Other Verified 08/10/22 08:46 atorvastatin [From Lipitor] AdvReac Pain in Verified 08/10/22 08:46 joints diclofenac AdvReac Hives Verified 08/10/22 08:46 divalproex sodium AdvReac Other Verified 08/10/22 08:46 duloxetine [From Cymbalta] AdvReac Itching Verified 08/10/22 08:46 gemfibrozil [From Lopid] AdvReac Other Verified 08/10/22 08:46 ibuprofen [From Motrin] AdvReac Rash Verified 08/10/22 08:46 lovastatin AdvReac Other Verified 08/10/22 08:46 methadone AdvReac Other Verified 08/10/22 08:46 metronidazole [From Flagyl] AdvReac Upset Verified 08/10/22 08:46 Stomach morphine [From MS Contin] AdvReac Other Verified 08/10/22 08:46 NSAIDS (Non-Steroidal AdvReac Other Verified 08/10/22 08:46 Anti-Inflamma paroxetine [From Paxil] AdvReac Other Verified 08/10/22 08:46 pregabalin [From Lyrica] AdvReac Other Verified 08/10/22 08:46 rosuvastatin [From Crestor] AdvReac Pain in Verified 08/10/22 08:46 joints sertraline [From Zoloft] AdvReac Other Verified 08/10/22 08:46 sulfamethoxazole AdvReac Other Verified 08/10/22 08:46 [From Bactrim] trimethoprim [From Bactrim] AdvReac Other Verified 08/10/22 08:46 Social History Smoking Status: Never smoker ROS ROS ED Constitutional Constitutional ED: Reports sweats; Denies chills or fever(s) Eyes Eyes: Reports change in vision ENT ENT ED: Reports dysphagia and sore throat Cardiovascular Cardiovascular: Reports leg edema; Denies chest pain, palpitations or racing heartbeat Respiratory/Chest Respiratory/Chest: Reports cough; Denies dyspnea or dyspnea on exertion Gastrointestinal Gastrointestinal: Denies abdominal pain, diarrhea, nausea or vomiting Genitourinary Genitourinary ED: Denies dysuria or urinary frequency Musculoskeletal Musculoskeletal: Denies extremity pain Integumentary Denies rash or wounds Neurologic Neurologic: Denies headache(s) EXAM Physical Exam Const Vital Signs: 08/11/22 19:54 08/11/22 23:07 Temperature 98.1 F Temperature Source Oral Pulse Rate 85 Respiratory Rate 18 14 Blood Pressure 126/74 H Blood Pressure Mean 91 Pulse Ox 93 Oxygen Delivery Method Room Air Room Air Positive well nourished and well developed Constitutional Narrative: Calm, nontoxic General Appearance ED: well developed and NAD HEENT Reports moist mucous membranes normocephalic and atraumatic Eyes PERRL, EOMs intact bilaterally and conjunctivae normal General Eye ED: Yes normal appearance of both eyes Neck no lymphadenopathy and supple General: Negative for tenderness Chest Wall Chest: Negative for tenderness Resp normal respiratory effort and normal air movement Effort and Inspection: symmetric chest movement; Negative for respiratory distress Cardio regular rate, regular rhythm and no murmurs Peripheral Pulses: pulses 2+ throughout GI normal to inspection, nondistended, normoactive bowel sounds and non-tender Palpation: Negative for guarding or rebound tenderness present Back/Spine no CVA tenderness and no thoracic nor lumbar tenderness Extremity normal to inspection General Extremety ED: Negative for edema or tenderness General Extremity: Negative for edema Neuro no sensory deficits noted Neuro Narrative: Alert to person and place reported year was 1965. No focal deficits. Sensorium / Orientation: awake and alert Skin no rashes or lesions noted and no wounds MDM MDM MDM Narrative Medical decision making narrative: Interventions / MDM: Differential diagnosis: Dementia with behavior disturbances, bipolar history Diagnosis considered but do not suspect: N/A My EKG interpretation: N/A Imaging independently reviewed and interpreted by myself: N/A External documents reviewed: CT brain yesterday negative. X-ray hip yesterday negative. Review ED note yesterday apparently concerns for ing prior to her transport to the facility she required antipsychotic medications prior to transferring to the facility. Test considered but not ordered:N/A ED course: Patient currently calm, nontoxic. Currently concerns for dementia with behavior disturbances. She is currently unable to be managed at her new facility. Laboratory studies were checked for medical clearance. Urine tox screen also ordered. Head CT performed yesterday therefore will not reorder without any new injuries. 2315: Currently pending UA for further evaluation. Patient be signed out to night physician. Will require crisis evaluation for likely [facility] placement. Re-evaluation: stable Disposition discussed with patient/family/significant other: Case discussed with consulting clinician: N/A Lab Data Attestation: I reviewed the patient's lab results. Labs: Laboratory Results - last 24 hr 08/11/22 08/11/22 08/11/22 21:15 21:15 21:15 WBC 7.4 RBC 3.92 L Hgb 12.1 Hct 39.3 MCV 100.3 H MCH 30.9 MCHC 30.8 L RDW Std Deviation 51.1 H RDW Coeff of [place] 13.9 Plt Count 261 MPV 10.9 Immature Gran % (Auto) 0.300 Neut % (Auto) 70.6 H Lymph % (Auto) 19.9 [place] % (Auto) 7.2 Eos % (Auto) 1.2 Baso % (Auto) 0.8 Absolute Neuts (auto) 5.2 Absolute Lymphs (auto) 1.47 Nucleated RBC % 0 Sodium 140 Potassium 4.7 Chloride 109 H Carbon Dioxide 27.0 Anion Gap 4 L BUN 30 H Creatinine 1.33 H Estim Creat Clear Calc 32.81 Est GFR (MDRD) Af Amer 49 L Est GFR (MDRD) Non-Af 41 L BUN/Creatinine Ratio 22.6 H Glucose 104 Calcium 9.4 Ethyl Alcohol < 3.0 Discharge Plan Triage Chief Complaint: Mental Health ED Provider: Jose R Billingsley Dx/Rx/DC Orders Clinical Impression: Dementia with behavioral disturbance Prescriptions: No Action donepezil 10 tablet 10 mg PO QHS rizatriptan 10 MG tablet 10 mg PO DAILY Label Comments: TAKE ONE TABLET AT ONSET OF HEADACHE MAY REPEAT IN 2 HOURS NO MORE THAN 3 TABLETS PER DAY buspirone 7.5 MG tablet 7.5 mg PO BID Label Comments: TAKE 3 TABLETS BY MOUTH TWICE DAILY. lamotrigine 150 mg Tablet 150 mg PO BID meloxicam 15 mg Tablet 15 mg PO DAILY omeprazole 40 mg Capsule,Delayed Release(Dr/Ec) 40 mg PO DAILY Crestor 20 mg OTHER DAILY fluoxetine 20 mg PO/SL BID oxybutynin chloride 5 mg Tablet Extended Release 24hr 5 mg PO DAILY lorazepam [Ativan] 1 mg Tablet 1 mg PO Q12H PRN PRN (Reason: Restlessness) solifenacin [Vesicare] 5 mg Tablet 5 mg PO DAILY Primary Care Provider: Thao Allen Referrals: Thao Allen MD [Primary Care Provider] -
[2022-08-11 23:07] VITALS: RESP 14
[2022-08-12 04:16] VITALS: BP 124/66; PULSE 76; RESP 18; O2SAT 95
[2022-08-12 04:20] LABS: Mucous, Urine 0 SEEN /hpf (<or=2+)
[2022-08-12 04:28] LABS: Color, Urine Yellow (Yellow); Glucose, Dipstick Normal (Normal); Ketone-Dipstick 5 mg/dl (Negative); Leukocyte Esterase-Dipstick 25 /ul (Negative); Nitrite-Dipstick Negative (Negative); Occult Blood-Urine 10 /ul (Negative); Protein-Dipstick 15 mg/dl (Negative); Specific Gravity, Urine 1.025 (1.002-1.030); Urine Clarity Clear (Clear); Urine Urobilinogen 1 mg/dl (Normal)
[2022-08-12 04:33] LABS: Urine Bilirubin Dipstick 1 mg/dL (Negative)
[2022-08-12 04:34] LABS: Bacteria 1+ /hpf (None Seen); Red Blood Cells-Urine 0-5 SEEN /hpf (0-5); Squamous Epithelial Cells - UA 10-25 SEEN /hpf (5-10); White Blood Cells 5-10 SEEN /hpf (0-5)
[2022-08-12 04:49] LABS: Amphetamine Urine VISTA NEGATIVE (<1000 ng/mL); Barbiturate Urine VISTA NEGATIVE (< 200 ng/mL); Benzodiazepine Urine VISTA NEGATIVE (< 200 ng/mL); Cocaine Urine VISTA NEGATIVE (< 300 ng/mL); Ecstacy Urine VISTA NEGATIVE (< 500 ng/mL); Methadone Urine VISTA NEGATIVE (< 300 ng/mL); PCP Urine VISTA NEGATIVE (< 25 ng/mL); THC Urine VISTA NEGATIVE (< 50 ng/mL); Vista UDS pH Range 4
--- NOTE | 2022-08-12 07:06 | ED.RN ---
FAXED CHART REQUESTED TO CRISIS
--- NOTE | 2022-08-12 07:22 | ED.RN ---
[facility] CALLED AND SAID THEY WOULD DO A COLLATERAL ASSESSMENT AND FAX IT TO US, DUE TO PATIENT BASICALLY BEING NON VERBAL
[2022-08-12 08:10] VITALS: BP 122/64; PULSE 72; RESP 16; O2SAT 96
--- NOTE | 2022-08-12 09:40 | ED.RN ---
TALKED WITH THE ADMISSION DIRECTOR FROM [facility], EXPLAINED THE SITUATION AND THAT CRISIS DOES NOT FEEL PT WOULD BENEFIT FROM [facility]. ALSO EXPLAINED THE MEDICATIONS THAT THEY ADMINISTERED PRIOR TO PT BEING TRANSPORTED TO OUR FACILITY APPEARED TO BE APPROPRIATE BECAUSE PT HAS BEEN GREAT FOR US ALL NIGHT LONG. ALSO LET HER KNOW PHYSICIANS WOULD BE TRANSPORTING HER BACK TO THEIR FACILITY. DIRECTOR STATED SHE WAS GOING TO TALK WITH THE VICE PRESIDENT PLANNING AND CALL RIGHT BACK. HAVE NOT HEARD FROM HER SINCE.
[2022-08-12 09:54] VITALS: BP 124/66; PULSE 72; RESP 18; O2SAT 96
== END 2022-08-12 09:55 | disposition home or self-care (01) ==
PROVIDERS: Emergency Provider Emergency Medicine; PCP Internal Medicine; Visit Provider Emergency Medicine
DX: F03.918 Unspecified dementia, unspecified severity, with other behavioral disturbance (principal); F31.9 Bipolar disorder, unspecified; E78.5 Hyperlipidemia, unspecified; Z79.899 Other long term (current) drug therapy; F41.9 Anxiety disorder, unspecified
CPT/HCPCS: 80048; 80307; 81001; 82077; 85025; 87811; 99285; A4216